=== PATIENT | female | born 1970 | race African-American/Black ===

== ENCOUNTER 2020-07-14 20:51 | Emergency (ER) | payer OTHER ==
[~2020-07-14] VITALS: Ht 165.1 cm; Wt 92.5 kg
[2020-07-14] MEDS ORDERED: ONDANSETRON HCL INJ 2MG/ML 2ML 2 MG/ML VIAL IV STA (21:23)
[2020-07-14] MEDS ORDERED: ONDANSETRON HCL INJ 2MG/ML 2ML 2 MG/ML VIAL ONE ×2 (22:10→22:11)
[2020-07-14] MEDS ORDERED: PREVACID30 MG PO (23:04)
[2020-07-14] MEDS ORDERED: ONDANSETRON ODT4 MG PO (23:04)
[2020-07-14 23:32] VITALS: BP 152/108
== END 2020-07-14 23:32 | disposition home or self-care (01) ==
LOC: FSED 21:24
DX: R10.13 Epigastric pain (principal); R11.0 Nausea; I10 Essential (primary) hypertension
CPT/HCPCS: 74176; 80048; 80076; 81003; 81025; 85025; 99283; J2405

== ENCOUNTER 2021-03-02 01:21 | Emergency (ER) | payer OTHER ==
[~2021-03-02] VITALS: Ht 165.1 cm; Wt 92.5 kg
[~2021-03-02 01:21] MED LIST: ONDANSETRON ODT4 MG PO; PREVACID30 MG PO
[2021-03-02] MEDS ORDERED: ONDANSETRON HCL 4 MG ORAL DISINTEGRATING TAB PO ONE (01:45)
[2021-03-02] MEDS ORDERED: TETRACAINE HCL 0.5% OPTH SOLN 4 ML BTL OP ONE (01:45)
[2021-03-02] MEDS ORDERED: IBUPROFEN 200 MG TAB PO ONE (01:45)
[2021-03-02] MEDS ORDERED: ERYTHROMYCIN (OPTH) 3.5 GM OINT OP ONE ×2 (01:45→01:55)
[2021-03-02] MEDS ORDERED: ACETAMINOPHEN500 MG PO (01:48)
[2021-03-02] MEDS ORDERED: IBUPROFEN IB200 MG PO (01:48)
[2021-03-02] MEDS ORDERED: IBUPROFEN 600 MG TAB ONE (01:55)
[2021-03-02] MEDS ORDERED: ONDANSETRON HCL 4 MG ORAL DISINTEGRATING TAB ONE (01:55)
[2021-03-02] MEDS ORDERED: HYDROCODONE/APAP 5MG-325MG TAB ONE (01:56)
[2021-03-02] MEDS ORDERED: HYDROCODONE/APAP 5MG-325MG TAB PO ONE (02:30)
== END 2021-03-02 03:03 | disposition home or self-care (01) ==
LOC: FSED 01:36
DX: S05.01XA Injury of conjunctiva and corneal abrasion without foreign body, right eye, initial encounter (principal); W22.8XXA Striking against or struck by other objects, initial encounter; Y92.008 Other place in unspecified non-institutional (private) residence as the place of occurrence of the external cause
CPT/HCPCS: 99282; Q0162